=== PATIENT | female | born 1985 | race Caucasian/White ===

== ENCOUNTER 2019-04-05 15:46 | Outpatient (CLI) | payer BC ==
--- NOTE | 2019-04-05 16:58 | ULT ---
OB ULTRASOUND: 04/05/19 INDICATIONS: Assess anatomy. FINDINGS: Intrauterine with gestational age by ultrasound 18 weeks, 0 days. BPD: 18 week, 0 day HC: 18 week, 0 day AC: 18 week, 5 day FL: 18 week, 1 day EFW: 238 grams. Amniotic fluid: Within normal range. TI: 13.9 cm. heart rate: 141 beats per minute. Placenta: Posterior. Presentation: Breech. Cervix: Closed. Cervical length 4.5 cm. anatomy evaluated include intracranial contents, four chamber heart, stomach, kidneys, cord ins ertion, bladder, spine, lips, nose, extremities and three vessel cord. No abnormality identified. IMPRESSION: 18 week, 0 day gestation by ultrasound. No abnormality identified. POS: OFF
== END 2019-04-05 15:47 | disposition home or self-care (01) ==
LOC: ULT 15:46
PROVIDERS: ATTEND Family Medicine
DX: Z34.02 Encounter for supervision of normal first pregnancy, second trimester (principal); Z3A.18 18 weeks gestation of pregnancy
CPT/HCPCS: 76805

== ENCOUNTER 2019-09-11 11:08 | Inpatient (IN) | payer BC ==
[2019-09-11] MEDS ORDERED: Lidocaine 1% (PF) 30 ML VIAL SC PRN (11:37)
[2019-09-11] MEDS ORDERED: Promethazine HCl 25 MG/ML VIAL IM PRN ×2 (11:37→22:35)
[2019-09-11] MEDS ORDERED: Acetaminophen/Codeine 30-300mg Tablet PO PRN (11:37)
[2019-09-11] MEDS ORDERED: hydrALAZINE 20 MG/ML VIAL SLOW IVP PRN (11:37)
[2019-09-11] MEDS ORDERED: Misoprostol 200 MCG TAB PR PRN (11:37)
[2019-09-11] MEDS ORDERED: Ibuprofen 800 MG TAB PO PRN (11:37)
[2019-09-11] MEDS ORDERED: Butorphanol Tartrate 1 MG/ML VIAL SLOW IVP PRN (11:37)
[2019-09-11] MEDS ORDERED: Ondansetron PF 4 MG/2 ML Vial IVP PRN ×2 (11:37→22:35)
[2019-09-11] MEDS ORDERED: Zolpidem Tartrate 5 MG TAB PO PRN (11:37)
[2019-09-11] MEDS ORDERED: NS w/ Oxytocin 10 units 500 ML IV SCH ×2 (11:37)
[2019-09-11] MEDS ORDERED: Misoprostol 100 MCG TAB VAG SCH (11:37)
[2019-09-11] MEDS ORDERED: Methylergonovine 0.2 MG/ML VIAL IM PRN (11:37)
[2019-09-11] MEDS ORDERED: HYDROcodone/Acetaminophen 5/325 mg Tablet PO PRN (11:37)
[2019-09-11] MEDS ORDERED: Acetaminophen 500 MG TAB PO PRN (11:37)
[2019-09-11 12:02] VITALS: BMI 33.7
[2019-09-11 12:33] LABS: Hemoglobin 12.7 g/dL (12.0-16.0); Mean Corpuscular HGB CONC 34.7 g/dL (32.0-36.0); Mean Corpuscular Hemoglobin 31.1 pg (27.0-31.0); Mean Corpuscular Volume 89.4 fL (78.0-98.0); Mean Platelet Volume 7.6 fL (7.4-10.4); Platelet Count 311 thou/uL (130-400); RBC Distribution Width 11.6 % (11.5-14.5); White Blood Cell (WBC) Count 14.3 thou/uL (4.8-10.8)
[2019-09-11 13:11] LABS: HBSAg Index 0.21 S/CO (0-0.99); Hep B Surf Ag Non-Reactive S/CO (NonReactive)
[2019-09-11 13:12] LABS: Syphilis Antibody Nonreactive (Nonreactive); Syphilis Antibody Index 0.03 S/CO (<1.00 Non-Reactive)
[2019-09-11] MEDS: Lactated Ringer's 1,000 ML IV SCH ×3 (14:26→22:45)
[2019-09-11] MEDS ORDERED: Lidocaine 1% (PF) 30 ML VIAL ONE (15:45)
[2019-09-11] MEDS ORDERED: NS / Oxytocin 40 units/1000ml 1,000 ML ONE (15:45)
[2019-09-11] MEDS ORDERED: Fentanyl 4 mcg/Bup 0.1% Cadd 100 ML ONE (21:36)
[2019-09-11] MEDS ORDERED: EPHEDRINE 25 MG/5 ML SYRINGE SLOW IVP PRN (22:35)
[2019-09-11] MEDS ORDERED: Lactated Ringer's 500 ML IV PRN (22:35)
[2019-09-11] MEDS ORDERED: diphenhydrAMINE 50 MG/ML VIAL IVP PRN (22:35)
[2019-09-11] MEDS ORDERED: Naloxone HCl 0.4 mg/ml Vial IVP PRN ×2 (22:35)
[2019-09-11] MEDS ORDERED: Communication Order-Pharmacy FS SCH (22:45)
[2019-09-11] MEDS ORDERED: Fentanyl 4 mcg/Bupivacaine 0.1% Cassette 100 ML EPIDURAL SCH (22:45)
[2019-09-12] MEDS: Lactated Ringer's 1,000 ML IV SCH (01:00)
[2019-09-12] MEDS: Acetaminophen 325 MG TAB PO PRN (01:05)
[2019-09-12] MEDS ORDERED: Ampicillin 2 GM in Sodium Chloride 0.9% 100 ML IVPB SCH ×2 (01:30→06:00)
[2019-09-12] MEDS: NS / Oxytocin 40 units/1000ml 1,000 ML IV PRN ×2 (03:28→05:19)
[2019-09-12 04:00] LABS: Actual Bicarbonate (HCO3v) 17 mEq/L (22-28); Base Excess -9.8 mEq/L (-2.0 to +3.0); pH (Cord, venous) 7.25 (7.32-7.43)
[2019-09-12] MEDS ORDERED: Bisacodyl 10 MG SUPP PR PRN (06:01)
[2019-09-12] MEDS ORDERED: hydrALAZINE 20 MG/ML VIAL SLOW IVP PRN (06:01)
[2019-09-12] MEDS ORDERED: diphenhydrAMINE 25 MG CAP PO PRN (06:01)
[2019-09-12] MEDS ORDERED: Milk Of Magnesia 30 ML UDCUP PO PRN (06:01)
[2019-09-12] MEDS ORDERED: Acetaminophen/Codeine 30-300mg Tablet PO PRN ×2 (06:01→08:20)
[2019-09-12] MEDS ORDERED: Ondansetron PF 4 MG/2 ML Vial IVP PRN (06:01)
[2019-09-12] MEDS ORDERED: Preparation H Ointment 28 GM TUBE PR PRN (06:01)
[2019-09-12] MEDS ORDERED: HYDROcodone/Acetaminophen 5/325 mg Tablet PO PRN ×2 (06:01→08:20)
[2019-09-12] MEDS ORDERED: Benzocaine-Menthol 82.5 ML CAN TOP PRN (06:01)
[2019-09-12] MEDS ORDERED: NS / Oxytocin 40 units/1000ml 1,000 ML IV SCH (06:01)
[2019-09-12] MEDS: Docusate Calcium (SURFAK) 240 MG CAP PO SCH ×2 (10:06→21:37)
[2019-09-12] MEDS: Prenatal Vitamin 1 TAB PO SCH (10:06)
[2019-09-12] MEDS: Gentamicin Sulfate 80 MG in Premix Bag 1 BAG IVPB SCH ×3 (10:06→17:45)
[2019-09-12] MEDS: Ferrous Sulfate 325 MG TAB PO SCH ×2 (10:08→13:47)
[2019-09-12] MEDS: Ibuprofen 800 MG TAB PO SCH ×3 (10:08→21:38)
[2019-09-12] MEDS: Ampicillin 2 GM in Sodium Chloride 0.9% 100 ML IVPB SCH ×2 (13:22→19:58)
[2019-09-13] MEDS: Ampicillin 2 GM in Sodium Chloride 0.9% 100 ML IVPB SCH (00:47)
[2019-09-13] MEDS: Gentamicin Sulfate 80 MG in Premix Bag 1 BAG IVPB SCH (02:28)
[2019-09-13] MEDS: Ibuprofen 800 MG TAB PO SCH ×3 (05:30→22:00)
[2019-09-13] MEDS: Ferrous Sulfate 325 MG TAB PO SCH ×2 (07:35→17:00)
[2019-09-13] MEDS: Docusate Calcium (SURFAK) 240 MG CAP PO SCH ×2 (08:49→22:00)
[2019-09-13] MEDS: Prenatal Vitamin 1 TAB PO SCH (08:50)
[2019-09-13] MEDS: Cephalexin 250 MG CAP PO SCH ×3 (08:50→20:09)
[2019-09-14] MEDS: Cephalexin 250 MG CAP PO SCH ×2 (02:06→09:01)
[2019-09-14] MEDS: Ibuprofen 800 MG TAB PO SCH (05:31)
[2019-09-14 08:23] VITALS: BP 121/73; TEMP 98
[2019-09-14] MEDS: Docusate Calcium (SURFAK) 240 MG CAP PO SCH (09:01)
[2019-09-14] MEDS: Prenatal Vitamin 1 TAB PO SCH (09:01)
[2019-09-14] MEDS: Acetaminophen 325 MG TAB PO PRN (09:01)
[2019-09-14] MEDS: Ferrous Sulfate 325 MG TAB PO SCH (09:03)
== END 2019-09-14 10:10 | disposition home or self-care (01) | DRG 806 ==
LOC: L&D 11:08 → 3SW 09-12 07:09
PROVIDERS: ADMIT Family Medicine; ATTEND Family Medicine
PROC: 10E0XZZ Delivery of Products of Conception, External Approach (ICD-10-PCS; principal; 2019-09-12)
PROC: 10907ZC Drainage of Amniotic Fluid, Therapeutic from Products of Conception, Via Natural or Artificial Opening (ICD-10-PCS; 2019-09-12)
PROC: 0HQ9XZZ Repair Perineum Skin, External Approach (ICD-10-PCS; 2019-09-12)
DX: O48.0 Post-term pregnancy (principal); O75.2 Pyrexia during labor, not elsewhere classified; Z37.0 Single live birth; Z3A.41 41 weeks gestation of pregnancy; O69.81X0 Labor and delivery complicated by cord around neck, without compression, not applicable or unspecified; O70.0 First degree perineal laceration during delivery
CPT/HCPCS: 36415; 51702; 82805; 85027; 86780; 86850; 86900; 86901; 87340; J0290; J1580; J2001; J2405; J2590; J3490

== ENCOUNTER 2019-09-15 10:56 | Emergency (ER) | payer BC | END 2019-09-15 14:10 | disposition home or self-care (01) | LOC: ERS 10:56 | DX: Z53.21 Procedure and treatment not carried out due to patient leaving prior to being seen by health care provider (principal) ==

== ENCOUNTER 2023-11-19 07:33 | Outpatient (CLI) | payer OTHER | END 2023-11-19 07:34 | disposition home or self-care (01) | LOC: BICMRI 07:33 | PROVIDERS: ATTEND Podiatrist | DX: S93.492A Sprain of other ligament of left ankle, initial encounter (principal); M76.822 Posterior tibial tendinitis, left leg; M25.572 Pain in left ankle and joints of left foot; S00.85XA Superficial foreign body of other part of head, initial encounter; M25.472 Effusion, left ankle | CPT/HCPCS: 70210 ==